=== PATIENT | female | born 1950 ===

== ENCOUNTER → 2018-09-28 | Outpatient (CLI) | payer OTHER ==
[~2018-09-28] MED LIST: ACETAMINOPHEN650 M1; ATENOLOL50 MG; FOSAMAX PLUS D1 EACH; NEURONTIN800 MG; SIMVASTATIN40 MG
== END | disposition home or self-care (01) ==
LOC: NUCLEAR 10:00
DX: M81.0 Age-related osteoporosis without current pathological fracture (principal); M05.79 Rheumatoid arthritis with rheumatoid factor of multiple sites without organ or systems involvement; M85.88 Other specified disorders of bone density and structure, other site